=== PATIENT | female | born 1980 | race African-American/Black ===

== ENCOUNTER 2022-06-11 11:07 | Emergency (ER) | payer OTHER, SELFPAY ==
--- NOTE | ~2022-06-11 | XR_ITS ---
XR chest 2V DATE: 06/11/2022 12:44 INDICATION: Shortness of breath, weakness TECHNIQUE: PA and lateral views COMPARISON: 08/21/2006 PA and lateral chest FINDINGS: Normal heart size. No hilar or mediastinal enlargement. Mild aortic tortuosity. No pulmonar y infiltrate or consolidation, pleural effusion or pulmonary vascular congestion or pneumothorax. Included skeletal structures are unremarkable. IMPRESSION: No active cardiopulmonary disease Reviewed, dictated and finalized at location A. [facility] LABEL CLERK
[2022-06-11 11:26] VITALS: BP 181/114; PULSE 89; RESP 16; O2SAT 100
[2022-06-11 11:33] VITALS: BP 176/124; PULSE 94; RESP 16; TEMP 36.4; O2SAT 99
[2022-06-11 11:39] VITALS: PULSE 90; O2SAT 98
[2022-06-11 11:46] VITALS: BP 169/112; PULSE 87; RESP 19; O2SAT 98
[2022-06-11] MEDS: ACETAMINOPHEN 500 MG TABLET 1000 MG PO (12:57)
[2022-06-11] MEDS: LORazepam INJ (*CRX) 2 MG/ML VIAL 0.5 MG IV PUSH (12:58)
[2022-06-11 13:10] LABS: Basophils Percent Auto 0.4 % (0.2-1.2); Eosinophils Absolute Auto 0.1 K/mm3 (0-0.3); Eosinophils Percent Auto 0.6 % (0-4.4); Hematocrit 41.2 % (37.0-47.0); Hemoglobin 13.8 g/dL (12.0-15.0); Immature Granulocyte Absolute 0.05 K/mm3 (0.00-0.031); Immature Granulocyte Percent A 0.6 % (0-0.5); Lymphocytes Absolute Auto 1.72 K/mm3 (0.9-3.2); Lymphocytes Percent Auto 21.6 % (18.3-44.2); Mean Corpuscular HGB Conc 33.5 g/dl (32-36); Mean Corpuscular Hemoglobin 30.8 pg (26-34); Mean Platelet Volume 11.1 fl (7.4-10.4); Monocytes Absolute Auto 0.7 K/mm3 (0.1-0.6); Monocytes Percent Auto 9.3 % (2.6-8.5); Neutrophils Absolute Auto 5.4 K/mm3 (1.3-6.7); Neutrophils Percent Auto 67.5 % (45.5-73.1); Platelet Count Result 340 k/mm3 (150-375); Red Blood Count 4.48 M/mm3 (4.2-5.4); Red Cell Distribution Width 13.3 % (11.5-14.5)
[2022-06-11 13:46] LABS: Influenza A QL RT-PCR Negative (Negative); Influenza B QL RT-PCR Negative (Negative); SARS-CoV-2 RNA PCR Negative
[2022-06-11 13:58] LABS: Alanine Aminotransferase 42 U/L (6-35); Albumin Level 4.9 g/dL (3.5-5.1); Alkaline Phosphatase 66 U/L (38-126); Anion Gap 8 mmol/L (8-16); Aspartate Amino Transferase 41 U/L (14-36); Bilirubin,Total 0.7 mg/dL (0.2-1.3); Blood Urea Nitrogen 9 mg/dL (7-17); Calcium 9.2 mg/dL (8.4-10.2); Carbon Dioxide 28 mmol/L (22-30); Chloride 104 mmol/L (98-107); Estimated CRCL calculation 192 ml/min; Estimated Glomerular Filt Rate > 60; Glucose 93 mg/dL (65-110); Potassium 3.5 mmol/L (3.4-5.0); Sodium 140 mmol/L (137-145)
--- NOTE | 2022-06-11 15:33 | ED.GENADULT ---
HPI - General Adult General Chief complaint: Shortness of Breath/Dyspnea Stated complaint: Headache 3 days and SOB for 6 hours Time Seen by Provider: 06/11/22 11:32 History of Present Illness HPI narrative: Patient is a 42-year-old female who presents ER with reports of shortness of breath. Reports she has been feeling under the weather over the last 3 days. Is been associate with headache. She started having a hoarse voice today. She then felt slightly short of breath so her daughter sent her to the ER. No runny nose or cough. No exertional dyspnea. She is not short of breath at this time. Does have history of asthma. She is without any nausea or vomiting or abdominal discomfort. No known sick contacts. Related Data Allergies Allergy/AdvReac Type Severity Reaction Status Date / Time NKDA Allergy Mild Unknown Uncoded 06/11/22 11:40 Review of Systems Review of Systems: All systems reviewed & are unremarkable except as noted in HPI and below Constitutional: Constitutional: Denies chills, Denies fatigue and Denies fever(s) ENT: Denies nasal congestion and Reports sore throat Comments: Hoarseness of voice Cardiovascular: Cardiovascular: Denies chest pain and Denies radiating jaw, neck or arm pain Respiratory: Respiratory: Denies cough, Reports dyspnea and Denies wheezing Gastrointestinal: Gastrointestinal: Denies abdominal pain, Denies diarrhea, Denies nausea and Denies vomiting PMFSH Past Medical History Medical History (Updated 06/11/22 @ 15:41 by Abdirahman Ingram MD) Asthma Hypercholesterolemia Hypertension Family History Family History (Updated 11/13/15 @ 23:19 by DOCTOR UNKNOWN) Father Family history of glaucoma Hypertension Mother Hypertension Asthma Family history of malignant neoplasm Family history of diabetes mellitus in first degree relative Other Diabetes mellitus Social History Social History Smoking status: Never smoker Second hand tobacco smoke exposure: No Alcohol intake: current Exam Narrative: GENERAL: Well-appearing, well-nourished, and in no acute distress. HEAD: Normocephalic, atraumatic. EYES: PERRL and EOMI. ENT: Mucous membranes moist. Normal-appearing posterior oropharynx without tonsillar hypertrophy or uvular edema. CHEST: Clear to auscultation. No respiratory distress. HEART: Regular rate and rhythm. Normal peripheral pulses. ABDOMEN: Soft, nontender, nondistended. EXTREMITIES: Normal range of motion. No edema. SKIN: Warm, dry, no rash. NEURO: \Alert and oriented x3. PSYCH: Normal mood and affect. Course Course Emergency Course: Patient resting comfortably. Informed of results. No distress. Lung sounds clear. Normal O2 sat. Recommend follow-up with PCP for further treatment evaluation. Vital Signs Vital signs: Vital Signs Pulse Rate 89 06/11/22 11:26 Respiratory Rate 16 06/11/22 11:26 Blood Pressure 181/114 H 06/11/22 11:26 Pulse Oximetry 100 06/11/22 11:26 Temperature 97.6 F 06/11/22 11:33 Pulse Rate 87 06/11/22 11:46 Respiratory Rate 19 06/11/22 11:46 Blood Pressure 169/112 H 06/11/22 11:46 Pulse Oximetry 98 06/11/22 11:46 Oxygen Delivery Room Air 06/11/22 11:39 Medical Decision Making Vital Signs Vital Signs: Vital Signs Pulse Rate 89 06/11/22 11:26 Respiratory Rate 16 06/11/22 11:26 Blood Pressure 181/114 H 06/11/22 11:26 Pulse Oximetry 100 06/11/22 11:26 Temperature 97.6 F 06/11/22 11:33 Pulse Rate 87 06/11/22 11:46 Respiratory Rate 19 06/11/22 11:46 Blood Pressure 169/112 H 06/11/22 11:46 Pulse Oximetry 98 06/11/22 11:46 Oxygen Delivery Room Air 06/11/22 11:39 Lab Data 06/11/22 12:59 06/11/22 13:38 Labs: Lab Results 06/11/22 06/11/22 06/11/22 Range/Units 12:59 12:59 13:38 WBC 8.0 (4.5-10.0) K/mm3 RBC 4.48 (4.2-5.4) M/mm3 Hgb 13.8 (12.0-15.0) g/dL Hct 41.2 (37.0-47.0) % MCV
[2022-06-11 16:05] VITALS: BP 161/110; PULSE 88; RESP 18; O2SAT 98
--- NOTE | 2022-06-11 17:37 | ECG_ITS ---
Measurements Intervals [place] Rate: 90 P: 42 AR: 154 QRS: 2 QRSD: 96 T: 256 QT: 359 QTc: 441 Interpretive Statements SINUS RHYTHM LEFT VENTRICULAR HYPERTROPHY AND ST-T CHANGE [VOLTAGE CRITERIA PLUS ST/T ABNORMALITY] ABNORMAL ECG NO PREVIOUS ECG AVAILABLE FOR COMPARISON Electronically Signed On 06-12-2022 7:59:22 PUBLIC RELATIONS COORDINATOR by Dakotah Roberts M.D.
== END 2022-06-11 16:07 | disposition home or self-care (01) ==
PROVIDERS: Emergency Provider Emergency Medicine; PCP Internal Medicine Infectious Disease
DX: B34.9 Viral infection, unspecified (principal); Z20.822 Contact with and (suspected) exposure to COVID-19; E78.00 Pure hypercholesterolemia, unspecified; I10 Essential (primary) hypertension; I51.7 Cardiomegaly
CPT/HCPCS: 36415; 71046; 80053; 85025; 87636; 93005; 96374; 99284; A9270; J2060

== ENCOUNTER 2023-03-20 10:17 | Emergency (ER) | payer BC, SELFPAY ==
[2023-03-20 10:45] VITALS: BP 151/108; PULSE 79; RESP 20; TEMP 36.7; O2SAT 98
--- NOTE | 2023-03-20 12:01 | ED.NECK ---
HPI - Neck Pain/Injury General Chief Complaint: Neck Pain/Injury Stated Complaint: Neck pain Time Seen by Provider: 03/20/23 11:59 Source: patient Mode of arrival: ambulatory Limitations: no limitations History of Present Illness HPI Narrative: This is a 43 yo who presents with a pruritic rash. Patient is having it along her left neck now, but it started elsewhere and can be found on her bilateral flexor surfaces of elbows, and under her breasts. It started approximately 1 month ago with the neck involvement over the past 3 days. She has been using Tylenol. She notes the skin findings but also states she is having pain along her left neck; no trauma. No weakness/numbness/tingling in arms. She has been applying neosporin, taking benadryl, applying cocoa butter. No changes in soap/laundry detergent. No fevers. No family members with similar. She stopped taking her medications (amitryptaline, losartan) thinking they might be contributing, but these are not need medications, she has been taking them for awhile, and she has not noticed a change since stopping her meds. She has a history of asthma. Related Data Home Medications Medication Instructions Recorded Confirmed acetaminophen 650 mg mg PO 03/20/23 tablet,extended release albuterol sulfate 2.5 mg/3 mL mg 03/20/23 (0.083 %) solution for nebulization amlodipine 10 mg tablet mg 03/20/23 aspirin 325 mg tablet mg 03/20/23 carvedilol 25 mg tablet mg 03/20/23 chlorthalidone 25 mg tablet mg 03/20/23 cholecalciferol (vitamin D3) 50 03/20/23 mcg (2,000 unit) tablet clonazepam 0.5 mg tablet mg 03/20/23 clopidogrel 75 mg tablet mg 03/20/23 cyclobenzaprine 5 mg tablet mg 03/20/23 escitalopram oxalate 20 mg tablet mg 03/20/23 evolocumab 140 mg/mL subcutaneous mg subcut 03/20/23 pen injector (Marc Eckert) furosemide 40 mg tablet mg 03/20/23 hydrochlorothiazide 25 mg tablet mg 03/20/23 ibuprofen 800 mg tablet mg 03/20/23 isosorbide mononitrate 60 mg mg PO 03/20/23 tablet,extended release 24 hr losartan 100 mg tablet mg 03/20/23 montelukast 10 mg tablet mg 03/20/23 nitrofurantoin 03/20/23 monohydrate/macrocrystals 100 mg capsule nitroglycerin 0.4 mg sublingual mg 03/20/23 tablet oxybutynin chloride 15 mg mg PO 03/20/23 tablet,extended release 24 hr oxycodone-acetaminophen 5 mg-325 tablet 03/20/23 03/20/23 mg tablet rosuvastatin 40 mg tablet mg 03/20/23 spironolactone 50 mg tablet mg 03/20/23 sumatriptan succinate 100 mg tablet mg PO 03/20/23 Allergies Allergy/AdvReac Type Severity Reaction Status Date / Time NKDA Allergy Mild Unknown Uncoded 03/20/23 10:49 [facility] Past Medical History Medical History (Updated 03/21/23 @ 00:00 by Background Marck) Asthma Hypercholesterolemia Hypertension Family History Family History (Updated 11/13/15 @ 23:19 by DOCTOR UNKNOWN) Father Family history of glaucoma Hypertension Mother Hypertension Asthma Family history of malignant neoplasm Family history of diabetes mellitus in first degree relative Other Diabetes mellitus Social History Social History Smoking status: Never smoker Second hand tobacco smoke exposure: No Alcohol intake: current Exam Narrative: GENERAL: Well-appearing, well-nourished, and in no acute distress. HEAD: Normocephalic, atraumatic. EYES: Non injected, non icteric ENT: Nares clear, no rhinorrhea or epistaxis. NECK: Supple. No midline TTP. No bony step offs. No TTP of left neck. 5/5 strength with trapezius testing and sternocleidomastoid muscles. CHEST: Speaking in full sentences. No respiratory distress. HEART: Regular rate and rhythm. Normal peripheral pulses. ABDOMEN: Obese, Soft, nondistended. EXTREMITIES: Normal range of motion. No edema. SKIN: Warm, dry. Hyperpigmented areas under bilateral breasts which are non-blanching, flat, smooth. Left neck andleft chest scattered lesions. Right elbow with scattered lesions on
[2023-03-20 13:07] VITALS: BP 150/105; PULSE 73; RESP 18; O2SAT 99
== END 2023-03-20 13:10 | disposition home or self-care (01) ==
PROVIDERS: Emergency Provider Student in an Organized Health Care Education/Training Program; PCP Internal Medicine Infectious Disease
DX: L30.9 Dermatitis, unspecified (principal); L40.9 Psoriasis, unspecified; J45.909 Unspecified asthma, uncomplicated; E78.5 Hyperlipidemia, unspecified; I10 Essential (primary) hypertension; Z79.82 Long term (current) use of aspirin
CPT/HCPCS: 99283